=== PATIENT | female | born 2000 | race Two or more races ===

== ENCOUNTER 2019-06-06 12:14 | Emergency (ER) | payer OTHER ==
[~2019-06-06] VITALS: Ht 152.4 cm; Wt 64.9 kg
[2019-06-06 12:49] VITALS: BP 123/85
[2019-06-06 13:01] LABS: Urine WBC None Seen /hpf (0 - 5)
[2019-06-06 13:27] LABS: Urine Bacteria NONE SEEN /hpf (None Seen); Urine Blood 1+ /uL (Negative); Urine Specific Gravity 1.037 (1.001-1.035)
[2019-06-06 13:52] LABS: Amphetamine Screen, Urine NEGATIVE (NEGATIVE); Barbiturate Scree,Urine NEGATIVE (NEGATIVE); Benzodiazephine Screen, Urine NEGATIVE (NEGATIVE); Cocaine Screen, Urine NEGATIVE (NEGATIVE); Opiate Scree,Urine NEGATIVE (NEGATIVE); Phencyclidine Screen, Urine NEGATIVE (NEGATIVE)
[2019-06-06 14:01] LABS: Cannabinoid Screen, Urine POSITIVE (NEGATIVE)
== END 2019-06-06 14:58 | disposition left against medical advice (07) ==
LOC: ER 12:14
DX: K92.0 Hematemesis (principal); Z53.21 Procedure and treatment not carried out due to patient leaving prior to being seen by health care provider
CPT/HCPCS: 80307; 81001